=== PATIENT | male | born 1995 | race Two or more races ===

== ENCOUNTER 2018-07-04 19:26 | Emergency (ER) | payer BC, OTHER ==
[~2018-07-04] VITALS: Ht 177.8 cm; Wt 65.0 kg
[2018-07-04 19:50] VITALS: BP 114/73
[2018-07-04] MEDS ORDERED: PROPARACAINE OPHTH 0.5%, 15ML EACHEYE ONE (20:00)
[2018-07-04] MEDS ORDERED: FLUORESCEIN/BENOXINATE 5 ML DROPS OP ONE (20:00)
[2018-07-04] MEDS ORDERED: PROPARACAINE OPHTH 0.5%, 15ML ONE (21:06)
== END 2018-07-04 22:28 | disposition home or self-care (01) ==
LOC: ED 22:22
DX: T15.01XA Foreign body in cornea, right eye, initial encounter (principal); H57.12 Ocular pain, left eye; Z88.0 Allergy status to penicillin; X58.XXXA Exposure to other specified factors, initial encounter; Y93.89 Activity, other specified; Y99.8 Other external cause status; Y92.89 Other specified places as the place of occurrence of the external cause
CPT/HCPCS: 65222; 99284